=== PATIENT | male | born 1955 | race African-American/Black ===

== ENCOUNTER 2017-05-22 17:15 | Emergency (ER) | payer OTHER ==
[~2017-05-22] VITALS: Ht 177.8 cm; Wt 130.0 kg
[~2017-05-22 17:15] MED LIST: ASPI81 PO; CARD2TAB PO; LABE200T2 PO; NIFE20 PO; TYLE500T PO; ZOCO40TA PO
[2017-05-22 17:18] VITALS: BP 188/92; PULSE 70; RESP 18; TEMP 97.4; O2SAT 98
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
[2017-05-22 19:54] VITALS: BP_SYST 181; BP_SYST 189; BP_DIAS 88; BP_DIAS 91; PULSE 59; RESP 18; O2SAT 99
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
[2017-05-22] MEDS ORDERED: LISI2.5T3 PO (20:06)
[2017-05-22] MEDS ORDERED: TRIA1CAP6 PO (20:06)
[2017-05-22] MEDS ORDERED: ASPI1TAB57 PO (20:06)
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
[2017-05-22] MEDS ORDERED: IBUP-232 PO (20:30)
== END 2017-05-22 21:06 | disposition home or self-care (01) ==
LOC: NEPD 17:15
DX: S16.1XXA Strain of muscle, fascia and tendon at neck level, initial encounter (principal); S39.012A Strain of muscle, fascia and tendon of lower back, initial encounter; E78.00 Pure hypercholesterolemia, unspecified; I10 Essential (primary) hypertension; V43.52XA Car driver injured in collision with other type car in traffic accident, initial encounter; Z86.73 Personal history of transient ischemic attack (TIA), and cerebral infarction without residual deficits; Z79.82 Long term (current) use of aspirin; Z79.899 Other long term (current) drug therapy
CPT/HCPCS: 72040; 72100; 99284

== ENCOUNTER 2017-11-22 20:06 | Observation (INO) ==
[2017-11-22 20:56] LABS: Baso % (Auto) 0.3 % (0.0-2.0); Eos # (Auto) 0.1 th/mm3 (0.0-0.4); Eos % (Auto) 1.5 % (0.0-4.0); Hematocrit 38.6 % (39.0-51.0); Hemoglobin 12.8 gm/dL (13.0-17.0); Lymph % (Auto) 28.1 % (9.0-44.0); Mean Corpuscular HGB Conc 33.2 % (32.0-36.0); Mean Corpuscular Hemoglobin 32.3 pg (27.0-34.0); Mean Corpuscular Volume 97.2 fL (80.0-100.0); Mean Platelet Volume 9.2 fL (7.0-11.0); Mono # (Auto) 0.3 th/mm3 (0.0-0.9); Mono % (Auto) 4.6 % (0.0-8.0); Neut # (Auto) 4.8 th/mm3 (1.8-7.7); Neut % (Auto) 65.5 % (16.0-70.0); Platelet Count 151 th/mm3 (150-450); Red Blood Count 3.98 mil/mm3 (4.50-5.90); Red Cell Distribution Width 14.8 % (11.6-17.2); White Blood Count 7.3 th/mm3 (4.0-11.0)
--- NOTE | 2017-11-22 21:13 | XR ---
EXAM DATE: 11/22/2017 9:08 PM EDT AGE/SEX: 62 years / Male INDICATIONS: . Chest pain. CLINICAL DATA: This is the patient's initial encounter. Patient reports that signs and symptoms have been present for 2 days and indicates a pain score of 9/10. MEDICAL/SURGICAL HISTORY: Hypertension. Stroke. None. [place] [facility] [place] . FINDINGS: PA and lateral views of the chest demonstrate the lungs to be symmetrically aerated without evidence of mass, infiltrate or effusion. Chronic linear scarring in the left costophrenic angle, unchanged fr om 2012. The cardiomediastinal contours are unremarkable. Osseous structures are intact. CONCLUSION: The lungs are clear. Electronically signed by: Tamir Sevilla MD 11/22/2017 9:12 PM EDT
[2017-11-22 21:24] LABS: Calcium 8.7 mg/dL (8.5-10.1); Carbon Dioxide 25.5 meq/L (21.0-32.0); Potassium 3.4 meq/L (3.5-5.1)
[2017-11-22 21:27] LABS: Troponin I 0.03 ng/mL (0.02-0.05)
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
[2017-11-22 21:40] LABS: CKMB Percent 0.6 % (0.0-4.0); Creatine Kinase MB 2.5 ng/mL (0.5-3.6)
[2017-11-22] MEDS ORDERED: Acetaminophen 500 MG Tablet PO PRN (22:27)
[2017-11-22 22:35] LABS: Activated Partial Thrombo Time 24.9 sec (24.3-30.1); Prothrombin Time 10.5 sec (9.8-11.6)
[2017-11-23 02:23] LABS: Troponin I 0.03 ng/mL (0.02-0.05)
[2017-11-23 05:48] LABS: Troponin I 0.02 ng/mL (0.02-0.05)
[2017-11-23 06:00] LABS: CKMB Percent 0.6 % (0.0-4.0)
[2017-11-23 07:53] VITALS: RESP 16
--- NOTE | 2017-11-23 08:24 | ECG ---
Date Performed: 11/22/2017 Time Performed: 20:17:05 PTAGE: 62 years EKG: Sinus rhythm WITH SINUS ARRHYTHMIA BORDERLINE LEFT AXIS DEVIATION POSSIBLE RIGHT VENTRICULAR CONDUCTION DELAY MIN IMAL VOLTAGE CRITERIA FOR LVH, CONSIDER NORMAL VARIANT NONSPECIFIC T-WAVE ABNORMALITY BORDERLINE ECG Since PREVIOUS TRACING , no significant change noted PREVIOUS TRACIN05/19/2011 05.02 DOCTOR: Yumiko Thomas Interpretating Date/Time 11/23/2017 08:23:24
--- NOTE | 2017-11-23 08:26 | ECG ---
Date Performed: 11/23/2017 Time Performed: 00:38:26 PTAGE: 62 years EKG: SINUS BRADYCARDIA POSSIBLE RIGHT VENTRICULAR CONDUCTION DELAY ST DEVIATION AND MODERATE T-W AVE ABNORMALITY, CONSIDER LATERAL ISCHEMIA ABNORMAL ECG Since PREVIOUS TRACING , no significant change noted PREVIOUS TRACIN11/22/2017 20.17 DOCTOR: Yumiko Thomas Interpretating Date/Time 11/23/2017 08:25:10
--- NOTE | 2017-11-23 08:27 | ECG ---
Date Performed: 11/23/2017 Time Performed: 04:45:14 PTAGE: 62 years EKG: SINUS BRADYCARDIA BORDERLINE LEFT AXIS DEVIATION POSSIBLE RIGHT VENTRICULAR CONDUCTION CUATE Y BORDERLINE ECG Since PREVIOUS TRACING , ST segments again are upright PREVIOUS TRACIN11/22/2017 16.27 DOCTOR: Yumiko Thomas Interpretating Date/Time 11/23/2017 08:26:39
[2017-11-23] MEDS ORDERED: Lisinopril 10 MG Tablet PO SCH (09:00)
[2017-11-23] MEDS ORDERED: amLODIPine 10 MG Tablet PO SCH (09:00)
[2017-11-23] MEDS ORDERED: Aspirin 325 MG Tablet PO SCH (09:00)
[2017-11-23] MEDS ORDERED: Lisinopril 5 MG Tablet PO SCH (09:00)
[2017-11-23] MEDS ORDERED: Regadenoson Inj 0.4 MG/5 ML Syringe IV.PUSH ONE (09:48)
[2017-11-23] MEDS ORDERED: TRIAMTERENE 50 MG PO SCH (10:00)
--- NOTE | 2017-11-23 10:23 | P.HPCA ---
History of Present Illness Primary Care Physician: Evan Perez Chief Complaint: Chest pain History of Present Illness: This is a 62-year-old male the presents to ED via private vehicle with a plane of chest pain and elevated blood pressures. Has history of hypertension and CVA. Cannot recall any cardiac issues. States that he developed a left-sided chest discomfort that is described as stabbing. It lasted 10 minutes yesterday. Separate a few of the time since. This happened at rest. States he does nothing exertional. Currently denies chest discomfort. Denies associated shortness breath, nausea, or diaphoresis. Patient is a lifetime non-smoker. There is family history of CAD. - Diagnosis (1) Chest pain (2) Hypertension (3) History of CVA (cerebrovascular accident) (4) Renal insufficiency Review of Systems General: Patient denies fevers, chills, and recent travel. HEENT: Patient denies headache, sore throat, difficulty swallowing. Cardiovascular: Has the chest discomfort as mentioned above. Denies sensation of heart beating rapidly or irregularly. No syncope. Denies diaphoresis. Respiratory: Denies shortness of breath or inspirational chest discomfort. Denies coughing wheezing or hemoptysis. GI: Patient denies nausea, vomiting, diarrhea, abdominal pain, bloody stools. Musculoskeletal: Patient denies joint pain or edema. Denies calf pain or edema. Neurovascular: Patient denies numbness, tingling, weakness in extremities. Denies headache. Endocrine: Denies polyuria and polydipsia. Hematologic: Denies easy bruising. Skin: Denies rash or itching. PMFSH - History History Provided By: Patient - Medical History Medical History: Medical History (Last Updated 11/22/17 @ 21:29 by SON Chau) HTN (hypertension) Hyperlipidemia Obesity Stroke - Tobacco History Second Hand Smoke Exposure: No Tobacco Use In Past 30 Days: No Smoking Status: Never smoker - Alcohol History How Often Do You Have a Drink Containing Alcohol: Monthly or less - Substance Use History Substance History: No History of Abuse - Immunization History Tetanus Immunization: >5 Years Hx Influenza Vaccine This Season: No Medications and Allergies Active Medications: Active Medications Acetaminophen (Tylenol) 500 mg PO Q4H PRN PRN Reason: HEADACHE Amlodipine Besylate (Norvasc) 10 mg PO DAILY NARCISA Last Admin: 11/23/17 09:07 Dose: 10 mg Aspirin (Aspirin) 325 mg PO DAILY [facility] Lisinopril (Prinivil) 10 mg PO DAILY [facility] Last Admin: 11/23/17 09:07 Dose: Not Given Lisinopril (Prinivil) 2.5 mg PO DAILY [facility] Last Admin: 11/23/17 09:07 Dose: 2.5 mg Miscellaneous (Pill Splitter) 1 each OTHER UNSCH PRN PRN Reason: SEE LABEL COMMENTS Ondansetron HCl (Zofran Inj) 4 mg IV.PUSH Q6H PRN PRN Reason: NAUSEA Pantoprazole Sodium (Protonix) 40 mg PO DAILY [facility] Patient Own Medication: Triamterene 50mg Capsule 0 each PO DAILY [facility] Sodium Chloride (Ns Flush) 2 ml IV.FLUSH UNSCH PRN PRN Reason: FLUSH AFTER USING IV ACCESS Sodium Chloride (Ns Flush) 2 ml IV.FLUSH BID [facility] Last Admin: 11/23/17 09:08 Dose: 2 ml Sodium Chloride (Ns Flush) 2 ml IV.FLUSH PRN PRN PRN Reason: FLUSH AFTER USING IV ACCESS Allergies Allergy/AdvReac Type Severity Reaction Status Date / Time No Known Allergies Allergy Verified 11/22/17 21:46 Home Medications Medication Instructions Recorded Confirmed Type amlodipine 2.5 mg PO DAILY 11/22/17 11/22/17 History aspirin [Aspir-81] 81 mg PO DAILY 11/22/17 11/22/17 History lisinopril 2.5 mg PO DAILY 11/22/17 11/22/17 History triamterene [Dyrenium] 50 mg PO DAILY 11/22/17 11/22/17 History Exam Vital signs: Vital Signs 11/22/17 20:38 11/22/17 20:39 11/22/17 21:35 Temperature 97.9 F Pulse Rate 78 52 L 63 Respiratory Rate 16 17 16 Blood Pressure 216/97 H 147/74 H 179/86 H Pulse Oximetry 98 97 94 L 11/22/17 21:47 11/22/17 22:31 11/22/17 23:20 Temperature Pulse Rate 55 L Respiratory Rate 16 Blood Pressure 171/82 H Pulse Oximetry 94 L 97 11/23/17 00:00 11/23/17 04:00 11/23/17 07:52 Temperature 97.7 F 97.7 F 97.9 F Pulse Rate 53 L 61 57 L Respiratory Rate 14 18 16 Blood Pressure 180/86 H 177/93 H 175/90 H Pulse Oximetry 99 97 97 Intake & Output 11/22/17 11/23/17 11/23/17 18:59 06:59 18:59 Intake Total Balance Weight 140.3 kg Intake: Oral Other: # Voids 1 Narrative: GENERAL: This is a well-nourished, obese patient weighing 140 kg, well- developed patient, in no apparent distress. Patient speaks in clear complete sentences. Patient is pleasant. HEENT: Head is atraumatic and normocephalic. Neck is supple without lymphadenopathy and trachea is midline. No JVD or carotid bruits. CARDIOVASCULAR: Regular rate and rhythm without murmurs, gallops, or rubs. RESPIRATORY: Clear to auscultation. Breath sounds equal bilaterally. No wheezes , rales, or rhonchi. Chest wall is nontender. No use of accessory muscles. GASTROINTESTINAL: Abdomen is nontender, nondistended. Abdomen soft. No obvious pulsatile mass or bruit. No CVA tenderness. Strong femoral pulses bilaterally. Normal bowel sounds in all quadrants. MUSCULOSKELETAL: Bilateral 1+ edema bilateral lower extremity. Patient is moving upper and lower extremities freely. No calf tenderness, no Homans sign. Strong pulses in upper and lower extremities. NEUROLOGICAL: Patient is alert and oriented. Cranial nerves 2-12 are grossly intact. No focal deficits and speech is clear. SKIN: No rash and turgor is normal. Results 11/22/17 20:30 11/22/17 20:30 Cardiac Enzymes 11/22/17 11/22/17 11/23/17 Range/Units 20:30 20:30 01:35 CK-MB (CK-2) 2.5 (0.5-3.6) ng/mL Troponin I 0.03 0.03 (0.02-0.05) ng/mL B-Natriuretic Peptide 72 (0-100) pg/mL 11/23/17 Range/Units 05:10 CK-MB (CK-2) 2.0 (0.5-3.6) ng/mL Troponin I 0.02 (0.02-0.05) ng/mL B-Natriuretic Peptide (0-100) pg/mL Coagulation 11/22/17 11/22/17 Range/Units 20:30 21:58 PT 10.5 (9.8-11.6) sec APTT 24.9 (24.3-30.1) sec B-Natriuretic Peptide 72 (0-100) pg/mL CBC 11/22/17 Range/Units 20:30 WBC 7.3 (4.0-11.0) th/mm3 RBC 3.98 L (4.50-5.90) mil/mm3 Hgb 12.8 L (13.0-17.0) gm/dL Hct 38.6 L (39.0-51.0) % Plt Count 151 (150-450) th/mm3 Neut # (Auto) 4.8 (1.8-7.7) th/mm3 Lymph # (Auto) 2.0 (1.0-4.8) th/mm3 Dyer # (Auto) 0.3 (0.0-0.9) th/mm3 Eos # (Auto) 0.1 (0.0-0.4) th/mm3 Baso # (Auto) 0.0 (0.0-0.2) th/mm3 Comprehensive Metabolic Panel 11/22/17 Range/Units 20:30 Sodium 146 H (136-145) meq/L Potassium 3.4 L (3.5-5.1) meq/L Chloride 111 H (98-107) meq/L Carbon Dioxide 25.5 (21.0-32.0) meq/L BUN 14 (7-18) mg/dL Creatinine 1.99 H (0.60-1.30) mg/dL Calcium 8.7 (8.5-10.1) mg/dL Intake and Output 11/22/17 11/23/17 11/23/17 22:59 06:59 14:59 Intake Total Balance Intake: Oral Other: # Voids 1 Weight 140.3 kg Patient Weight 11/24/17 06:59 Weight 140.3 kg EKG interpretations - EKG EKG shows: bradycardia (EKGs in sinus rhythm to sinus bradycardia with nonspecific T-wave changes.), sinus rhythm Caprini VTE Risk Assessment Caprini VTE Risk Assessment: Moderate/High Risk (score >= 2) Caprini Risk Assessment Model: Point Value = 1 Point Value = 2 Point Value = 3 Point Value = 5 Age 41-60 Minor surgery BMI > 25 kg/m2 Swollen legs Varicose veins or History of unexplained or recurrent spontaneous Oral contraceptives or hormone replacement Sepsis (< 1 month) Serious lung disease, including pneumonia (< 1 month) Abnormal pulmonary function Acute myocardial infarction Congestive heart failure (< 1 month) History of inflammatory bowel disease Medical patient at bed rest Age 61-74 Arthroscopic surgery Major open surgery (> 45 min) Laparoscopic surgery (> 45 min) Malignancy Confined to bed (> 72 hours) Immobilizing plaster cast Central venous access Age >= 75 History of VTE Family history of VTE Factor V Leiden Prothrombin [id number] Lupus anticoagulant Anticardiolipin antibodies Elevated serum homocysteine Heparin-induced thrombocytopenia Other congenital or acquired thrombophilia Stroke (< 1 month) Elective arthroplasty Hip, pelvis, or leg fracture Acute spinal cord injury (< 1 month) Prophylaxis Regimen: Total Risk Factor Score Risk Level Prophylaxis Regimen 0-1 Low Early ambulation 2 Moderate Order ONE of the following: *Sequential Compression Device (SCD) *Heparin 5000 units SQ BID 3-4 Higher Order ONE of the following medications: *Heparin 5000 units SQ TID *Enoxaparin/Lovenox 40 mg SQ daily (WT < 150 kg, CrCl > 30 mL/min) *Enoxaparin/Lovenox 30 mg SQ daily (WT < 150 kg, CrCl > 10-29 mL/min) *Enoxaparin/Lovenox 30 mg SQ BID (WT < 150 kg, CrCl > 30 mL/min) AND/OR *Sequential Compression Device (SCD) 5 or more Highest Order ONE of the following medications: *Heparin 5000 units SQ TID (Preferred with Epidurals) *Enoxaparin/Lovenox 40 mg SQ daily (WT < 150 kg, CrCl > 30 mL/min) *Enoxaparin/Lovenox 30 mg SQ daily (WT < 150 kg, CrCl > 10-29 mL/min) *Enoxaparin/Lovenox 30 mg SQ BID (WT < 150 kg, CrCl > 30 mL/min) AND *Sequential Compression Device (SCD) Assessment and Plan - Assessment (1) Chest pain Code(s): R07.9 - Chest pain, unspecified Status: Acute (2) Hypertension Code(s): I10 - Essential (primary) hypertension Status: Acute (3) History of CVA (cerebrovascular accident) Code(s): Z86.73 - Personal history of transient ischemic attack (TIA), and cerebral infarction without residual deficits Status: Acute (4) Renal insufficiency Code(s): N28.9 - Disorder of kidney and ureter, unspecified Status: Acute - Plan * Chest pain: Patient has had serial cardiac enzymes and EKGs for ruling out purposes. He was seen by Dr. Thomas of cardiology in the chest pain center. He will undergo a Lexiscan. He will be discharged home if the stress test is nonischemic with instructions to follow-up with PCP. Return to ED for interval issues. * Hypertension: We will increase amlodipine to 10 mg. He was previously on 2.5 mg. He will need discuss his medications with his PCP as he also has renal insufficiency and is on a diuretic and an LILIANE inhibitor. He should follow-up with his PCP within 3 days to discuss this. * Renal insufficiency: Patient will need discuss his medications for hypertension with his PCP. Likely will need medication changes. * History of CVA: Patient should be on statin but this is not on his list. He needs discussed this with his PCP. Continue his aspirin. * Obesity: Patient counseled on importance of diet, exercise, weight loss. Patient is stable at this time. He is agreeable to this plan. H&P: Quality - VTE Deep Vein Thrombosis/Pulmonary Embolism Present on Admission: No
--- NOTE | 2017-11-23 11:04 | NM ---
EXAM DATE: 11/23/2017 10:50 AM EDT AGE/SEX: 62 years / Male INDICATIONS:Angina. . Left sided chest pain with dyspnea. CLINICAL DATA: This is the patient's initial encounter. Patient reports that signs and symptoms have been present for 1 day and indicates a pain score of 7/10. MEDICAL/SURGICAL HISTORY: Hypertension. Stroke. None. COMPARISON: No prior exams available for comparison. No external comparison. DOSE: 11.0 mCi Tc 99m Myoview at rest 35.0 mCi [id number] at stress 0.4 mg Lexiscan STRESS SYMPTOMS: Shortness of breath. EJECTION FRACTION: 41 % TECHNIQUE: The patient underwent pharmacologic stress with infusion of prescribed dose. Continuous ECG tracing was monitored during stress. Gated SPECT imaging was performed after stress and conventi onal SPECT imaging was performed at rest. The examination was performed on a SPECT/CT scanner, both attenuation and non-corrected datasets were reviewed. FINDINGS: Distribution: The maximum perfused segment at stress is in the anteroseptal wall. Perfusion Study: Mildly diminished apical perfusion. Possible mild redistribution Gated Study: Global mild hypokinesis. Slight LV chamber dilatation The ejection fraction is calcula amor at 41%. RISK CATEGORY: Intermediate (1-3 % Annual Mortality Rate) CONCLUSION: 1. Mild-moderate LV dysfunction. 2. Small apical perfusion abnormality with possible mild redistribution Electronically signed by: Pernell Angulo MD 11/23/2017 11:03 AM EDT
[2017-11-23 11:53] VITALS: BP 179/91; PULSE 62; TEMP 97.4; O2SAT 99
--- NOTE | 2017-11-23 16:29 | TR ---
Date Performed: 11/23/2017 Time Performed: 09:43:27 DOCTOR: Yumiko Thomas DRUG LIST: CLINICAL HISTORY: REASON FOR TEST: REASON FOR ENDING: OBSERVATION: CONCLUSION: Lexiscan stress test was performed under standard four minute protocol. Radionuclid e was injected one minute prior to ending the test. No electrocardiographic abormalities were present to suggest ischemia. Nuclear imaging and interpretation are pending. COMMENTS: No ischemia
== END 2017-11-23 13:03 | disposition home or self-care (01) ==
LOC: NEPHCDU 20:06 → NEPE 20:06 → NEDA 20:06 → NEPHCDU 23:45
PROVIDERS: ADMIT Internal Medicine Cardiovascular Disease; ATTEND Internal Medicine Cardiovascular Disease